=== PATIENT | female | born 1960 | race Caucasian/White ===

== ENCOUNTER 2025-02-18 10:28 | Emergency (ER) | payer MEDICARE ==
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
[2025-02-18 11:45] VITALS: PULSE 58; RESP 18
[2025-02-18 12:34] VITALS: O2SAT 96
[2025-02-18] MEDS ORDERED: MOTRIN 600 MG ONE (13:33)
[2025-02-18] MEDS ORDERED: PERCOCET TABLET 5/325MG ONE (13:33)
[2025-02-18] MEDS: MOTRIN 600 MG PO ONE (13:34)
[2025-02-18] MEDS: PERCOCET TABLET 5/325MG PO STA (13:34)
[2025-02-18] MEDS: Motrin Suspension PO ONE (13:35)
[2025-02-18 13:42] VITALS: BP 112/65
--- NOTE | 2025-02-18 20:30 | XRAY ---
Indication: Crush injury. Comparison: None 3 view left ankle demonstrates small posterior/plantar heel spurs and 2 tiny benign anterior lower leg subcutaneous calcifications. No acute abnormalities.
--- NOTE | 2025-02-18 20:32 | XRAY ---
Indication: Crush injury. Comparison: None 3 nonweightbearing views left foot demonstrates small posterior/plantar heel spurs and mild midfoot degenerative changes. No acute abnormalities.
== END 2025-02-18 13:45 | disposition home or self-care (01) ==
LOC: ED 10:28
DX: M79.672 Pain in left foot (principal); M25.572 Pain in left ankle and joints of left foot; I10 Essential (primary) hypertension; Z79.891 Long term (current) use of opiate analgesic; Z79.899 Other long term (current) drug therapy